=== PATIENT | female | born 1960 | race Caucasian/White ===

== ENCOUNTER 2020-03-13 04:50 | Emergency (ER) | payer MEDICAID ==
[~2020-03-13] VITALS: Ht 160 cm; Wt 78.9 kg
[2020-03-13 04:58] VITALS: BP 194/73
[2020-03-13] MEDS ORDERED: KETOROLAC 15 MG/ML VIAL IM ONE (05:15)
[2020-03-13 05:50] VITALS: BP 170/90
== END 2020-03-13 05:50 | disposition home or self-care (01) ==
LOC: MED 04:50
DX: M54.41 Lumbago with sciatica, right side (principal); I10 Essential (primary) hypertension
CPT/HCPCS: 96372; 99283; J1885